=== PATIENT | male | born 1955 | race Two or more races ===

== ENCOUNTER 2023-10-30 14:21 | Inpatient (IN) | payer OTHER ==
[~2023-10-30] VITALS: Ht 172.7 cm; Wt 60.8 kg
[2023-10-30] MEDS: CEFEPIME HCL 2 GM in IV DEXTROSE 5% 100 ML IV SCH (01:30)
[2023-10-30] MEDS ORDERED: NPH,100V SQ (14:41)
[2023-10-30] MEDS ORDERED: TIOT18CA3 INH (14:41)
[2023-10-30] MEDS ORDERED: ASPI-1420 PO (14:41)
[2023-10-30] MEDS ORDERED: TAMS-3 PO (14:41)
[2023-10-30] MEDS ORDERED: METF-442 PO (14:41)
[2023-10-30 15:08] LABS: ABG BASE EXCESS 4.8 mmol/L (-2.0-2.0); ABG HCO3 29.3 mmol/L (22.0-26.0); ABG PCO2 43.6 mmHg (35.0-48.0); ABG PH 7.445 (7.340-7.440); ABG PO2 66.2 mmHg (75.0-100.0); ABG SITE LEFT RADIAL; AaDO2 93.8 mmHg; COHb 3.3 % (0.0-3.9); MetHb 0.6 % (0.0-1.5); O2Hb 88.4 % (94.0-97.0)
[2023-10-30] MEDS: IV LACTATED RINGERS SOLUTION 1,000 ML BAG IV ONE (15:15)
[2023-10-30] MEDS ORDERED: CEFTRIAXONE 1 G VIAL ONE (15:17)
[2023-10-30] MEDS ORDERED: VANCOMYCIN IV 200 ML ONE (15:17)
[2023-10-30] MEDS: DEXAMETHASONE SOD PHOSPHATE 4 MG INJ IV ONE (15:18)
[2023-10-30] MEDS ORDERED: DEXAMETHASONE SOD PHOSPHATE 10 MG INJ ONE (15:18)
[2023-10-30] MEDS: CEFTRIAXONE 1 G in IV DEXTROSE 5% 50 ML IV ONE (15:20)
[2023-10-30 16:01] LABS: BASOPHILS % (AUTO) 0.8 % (0.0-2.0); EOSINOPHILS # (AUTO) 0.1 K/uL (0.0-0.7); LYMPHOCYTES # (AUTO) 0.4 K/uL (0.8-4.8); MONOCYTES # (AUTO) 0.5 K/uL (0.1-1.30); NEUTROPHILS # (AUTO) 5.1 K/uL (1.8-8.9); WHITE BLOOD COUNT (AUTO) 6.1 K/uL (3.6-10.2)
[2023-10-30 16:03] LABS: CALCIUM 8.1 mg/dL (8.5-10.1); CARBON DIOXIDE 28 mmol/L (21-32); CHLORIDE 107 mmol/L (98-107); CREATININE 0.9 mg/dL (0.6-1.3); EOSINOPHILS % (AUTO) 0.9 % (0.0-7.0); GLUCOSE 55 mg/dL (74-106); LYMPHOCYTES % (AUTO) 7.2 % (20.5-51.5); MEAN CORPUSCULAR HEMOGLOBIN 18.8 uug (23.8-33.4); MEAN CORPUSCULAR HGB CONC 30 g/dL (32.5-36.3); MEAN CORPUSCULAR VOLUME 63.4 fL (73.0-96.2); MONOCYTES % (AUTO) 8.4 % (0.0-11.0); NEUTROPHILS % (AUTO) 82.7 % (38.5-71.5); PLATELET COUNT (AUTO) 431 K/uL (152-348); POTASSIUM 3.1 mmol/L (3.5-5.1); RED BLOOD CELL COUNT(AUTO) 2.54 MIL/uL (4.06-5.63); RED CELL DISTRIBUTION WIDTH 21.1 % (12.1-16.2); SODIUM SERUM 145 mmol/L (136-145); UREA NITROGEN, BLOOD 11 mg/dL (7-18)
[2023-10-30 16:07] LABS: DIFFERENTIAL COMMENT 1
[2023-10-30 16:08] LABS: HEMOGLOBIN 4.8 g/dL (12.5-16.3)
[2023-10-30 16:09] LABS: HEMATOCRIT 16.1 % (36.7-47.1)
[2023-10-30] MEDS: VANCOMYCIN IV 1,000 MG in IV DEXTROSE 5% 250 ML IV ONE (16:09)
[2023-10-30 16:15] LABS: LACTIC ACID 2.4 mmol/L (0.4-2.0)
[2023-10-30 16:21] LABS: ALANINE AMINOTRANSFERASE 21 U/L (16-63); ALBUMIN 2.2 g/dL (3.4-5.0); ALKALINE PHOSPHATASE 119 U/L (50-136); ASPARTATE AMINOTRANSFERASE 25 U/L (15-37); BILIRUBIN,DIRECT 0.1 mg/dL (0.0-0.2); BILIRUBIN,TOTAL 0.2 mg/dL (0.2-1.0); NT-PRO BNP 2044 pg/mL (0-125); TOTAL PROTEIN, SERUM 6.1 g/dL (6.4-8.2)
[2023-10-30] MEDS ORDERED: LIDOCAINE 2% (GLYDO= UROJET) 10 ML JELLY MM ONE (16:29)
[2023-10-30] MEDS: LIDOCAINE 2% (GLYDO= UROJET) 10 ML JELLY MM ONE (16:41)
[2023-10-30 16:43] LABS: *BILIRUBIN,URIN NEGATIVE (NEGATIVE); *BLOOD, URINE NEGATIVE (NEGATIVE); *CLARITY,URINE CLEAR (CLEAR); *COLOR,URINE YELLOW (YELLOW); *KETONES,URINE NEGATIVE (NEGATIVE); *PROTEIN,URINE NEGATIVE (NEGATIVE); *UROBILINOGEN,URINE 0.2 E.U./dl (NORMAL); LEUKOCYTE ESTERASE ,URINE NEGATIVE (NEGATIVE); NITRITE, URINE NEGATIVE (NEGATIVE); PH,URINE 6.5 (5.0-8.0); UGLUCOSE TRACE (NEGATIVE)
[2023-10-30 16:49] LABS: RBC,URINE 0-3 /HPF (0-3); WBC,URINE 0-3 /HPF (0-3)
[2023-10-30 16:50] LABS: *OCCULT BLOOD STOOL NEGATIVE (NEGATIVE)
[2023-10-30 17:02] LABS: BASOPHILS % (MANUAL) 0 % (0-2); EOSINOPHILS % (MANUAL) 0 % (0-8); LYMPHOCYTES % (MANUAL) 10 % (20-40); MONOCYTES % (MANUAL) 10 % (2-10); NEUTROPHILS % (MANUAL) 80 % (42-75)
[2023-10-30] MEDS ORDERED: REMEDY ESSENTIAL ZINC PASTE 113 GM TP PRN (19:45)
[2023-10-30] MEDS ORDERED: ACETAMINOPHEN 325 MG TABLET PO PRN (19:45)
[2023-10-30] MEDS ORDERED: ONDANSETRON 4 MG/2 ML VIAL IV PRN (19:45)
[2023-10-30] MEDS ORDERED: MAGNESIUM HYDROXIDE 30 ML LIQUID UDC PO PRN (19:45)
[2023-10-30] MEDS ORDERED: ENOXAPARIN SODIUM 40 MG/0.4 ML DISP.SYRIN SQ SCH (21:00)
[2023-10-31] VITALS (10 sets, daily range): BP systolic 95–117; BP diastolic 42–68; TEMP 97.3–98.6; O2SAT 91–98
[2023-10-31] MEDS ORDERED: CEFEPIME HCL 1 G VIAL ONE (00:55)
[2023-10-31] MEDS: IV NS 1000 ML 1,000 ML IV PRN (01:18)
[2023-10-31 07:02] LABS: BASOPHILS % (AUTO) 0.2 % (0.0-2.0); HEMATOCRIT 21.6 % (36.7-47.1); LYMPHOCYTES # (AUTO) 0.3 K/uL (0.8-4.8); MEAN CORPUSCULAR HGB CONC 31 g/dL (32.5-36.3); MEAN CORPUSCULAR VOLUME 68.5 fL (73.0-96.2); MONOCYTES # (AUTO) 0.3 K/uL (0.1-1.30); RED BLOOD CELL COUNT(AUTO) 3.15 MIL/uL (4.06-5.63)
[2023-10-31 07:04] LABS: LYMPHOCYTES % (AUTO) 5.3 % (20.5-51.5); MEAN CORPUSCULAR HEMOGLOBIN 21.1 uug (23.8-33.4); MONOCYTES % (AUTO) 4.5 % (0.0-11.0); NEUTROPHILS # (AUTO) 5.9 K/uL (1.8-8.9); PLATELET COUNT (AUTO) 467 K/uL (152-348); RED CELL DISTRIBUTION WIDTH 24.5 % (12.1-16.2); WHITE BLOOD COUNT (AUTO) 6.5 K/uL (3.6-10.2)
[2023-10-31 07:19] LABS: DIFFERENTIAL COMMENT 1
[2023-10-31 07:21] LABS: HEMOGLOBIN 6.7 g/dL (12.5-16.3)
[2023-10-31 07:24] LABS: CREATININE 0.9 mg/dL (0.6-1.3); MAGNESIUM 1.7 mg/dL (1.8-2.4); PHOSPHOROUS 3.6 mg/dL (2.5-4.9); POTASSIUM 4.4 mmol/L (3.5-5.1)
[2023-10-31] MEDS: INSULIN REGULAR, HUMAN 300 UNIT/3 ML VIAL SQ PRN (07:58)
[2023-10-31] MEDS ORDERED: INSULIN REGULAR, HUMAN 300 UNITS/3 ML VIAL SQ PRN (08:00)
[2023-10-31] MEDS ORDERED: DEXTROSE 50% 50 ML DISP.SYRIN IV PRN (08:00)
[2023-10-31] MEDS: METFORMIN HCL 500 MG TABLET PO SCH (08:15)
[2023-10-31] MEDS: VANCOMYCIN IV 1,000 MG in IV DEXTROSE 5% 250 ML IV SCH (09:24)
[2023-10-31 11:00] LABS: HYPOCHROMASIA 1+; LYMPHOCYTES % (MANUAL) 7 % (20-40); MONOCYTES % (MANUAL) 3 % (2-10); NEUTROPHILS % (MANUAL) 90 % (42-75); PLATELET ESTIMATE INCREASED
[2023-10-31 11:01] LABS: ANISOCYTOSIS 2+
[2023-10-31] MEDS: BLOOD SUGAR DIAGNOSTIC 1 EACH STRIP VI SCH (11:28)
[2023-10-31] MEDS: MAGNESIUM OXIDE 400 MG TABLET PO ONE (11:30)
[2023-10-31] MEDS ORDERED: DULO60CA45 PO (15:36)
[2023-10-31] MEDS ORDERED: INSU100V28 SQ (15:36)
[2023-10-31] MEDS ORDERED: FERR-68 PO (15:36)
[2023-10-31] MEDS ORDERED: ALBU18HF2 IH (15:36)
[2023-10-31] MEDS ORDERED: ATOR80TA PO (15:36)
[2023-10-31] MEDS ORDERED: FINA5TAB11 PO (15:36)
[2023-11-01 00:15] VITALS: BP 108/63; TEMP 97.9; O2SAT 99
[2023-11-01] MEDS ORDERED: ZOLPIDEM 5 MG TABLET PO PRN (02:45)
[2023-11-01] MEDS ORDERED: AMOX-430 PO (08:26)
[2023-11-01 08:28] LABS: BASOPHILS # (AUTO) 0.1 K/UL (0.0-0.2); BASOPHILS % (AUTO) 1.1 % (0.0-2.0); EOSINOPHILS # (AUTO) 0.2 K/uL (0.0-0.7); EOSINOPHILS % (AUTO) 2.3 % (0.0-7.0); HEMATOCRIT 25.6 % (36.7-47.1); HEMOGLOBIN 7.9 g/dL (12.5-16.3); LYMPHOCYTES # (AUTO) 0.9 K/uL (0.8-4.8); LYMPHOCYTES % (AUTO) 11.9 % (20.5-51.5); MEAN CORPUSCULAR HGB CONC 31 g/dL (32.5-36.3); MEAN CORPUSCULAR VOLUME 71.3 fL (73.0-96.2); MONOCYTES # (AUTO) 0.6 K/uL (0.1-1.30); MONOCYTES % (AUTO) 7.9 % (0.0-11.0); NEUTROPHILS # (AUTO) 5.6 K/uL (1.8-8.9); NEUTROPHILS % (AUTO) 76.8 % (38.5-71.5); PLATELET COUNT (AUTO) 552 K/uL (152-348); RED BLOOD CELL COUNT(AUTO) 3.59 MIL/uL (4.06-5.63); RED CELL DISTRIBUTION WIDTH 26.1 % (12.1-16.2); WHITE BLOOD COUNT (AUTO) 7.3 K/uL (3.6-10.2)
[2023-11-01 08:31] LABS: DIFFERENTIAL COMMENT 1
[2023-11-01 14:48] LABS: BAND % (MANUAL) 3 % (0-10); EOSINOPHILS % (MANUAL) 2 % (0-8); LYMPHOCYTES % (MANUAL) 11 % (20-40); MONOCYTES % (MANUAL) 7 % (2-10); NEUTROPHILS % (MANUAL) 77 % (42-75); PLATELET ESTIMATE ADEQUATE
[2023-11-01 14:49] LABS: ANISOCYTOSIS 3+; HYPOCHROMASIA 2+
== END 2023-11-01 10:10 | disposition home health service (06) | DRG 137 ==
LOC: ER 14:22 → TELE3 22:45 → MEDSURG3 11-01 08:00
PROVIDERS: ADMIT Internal Medicine; ATTEND Internal Medicine
PROC: 30233N1 Transfusion of Nonautologous Red Blood Cells into Peripheral Vein, Percutaneous Approach (ICD-10-PCS; principal; 2023-10-30)
PROC: 05HB33Z Insertion of Infusion Device into Right Basilic Vein, Percutaneous Approach (ICD-10-PCS; 2023-10-31)
DX: J15.69 Pneumonia due to other Gram-negative bacteria (principal); G93.41 Metabolic encephalopathy; E11.649 Type 2 diabetes mellitus with hypoglycemia without coma; D63.8 Anemia in other chronic diseases classified elsewhere; C34.11 Malignant neoplasm of upper lobe, right bronchus or lung; J44.0 Chronic obstructive pulmonary disease with (acute) lower respiratory infection; Z85.118 Personal history of other malignant neoplasm of bronchus and lung; F17.210 Nicotine dependence, cigarettes, uncomplicated; I25.10 Atherosclerotic heart disease of native coronary artery without angina pectoris; Z95.1 Presence of aortocoronary bypass graft; R60.0 Localized edema; E78.5 Hyperlipidemia, unspecified; L08.9 Local infection of the skin and subcutaneous tissue, unspecified; Z79.4 Long term (current) use of insulin; Z79.84 Long term (current) use of oral hypoglycemic drugs; Z79.899 Other long term (current) drug therapy; Z79.82 Long term (current) use of aspirin
CPT/HCPCS: 36415; 36600; 70030-TC; 70450; 71045; 82803; 83605; 83735; 84100; 84484; 85025; 85730; 86850; 86900; 86901; 86920; 87040; 93005; A4606; A4663; C1758; G0378; J0692; J0696; J1100; J1815; J3370; J7040; J7050; J7120; P9016